=== PATIENT | male | born 1995 | race Caucasian/White ===

== ENCOUNTER 2020-10-03 14:16 | Emergency (ER) | payer SELFPAY ==
[~2020-10-03] VITALS: Ht 180.3 cm; Wt 75.3 kg
[2020-10-03 14:19] VITALS: BP 126/86
--- NOTE | 2020-10-03 14:26 | NUR ---
PT AMBULATED BACK TO ROOM. SECURITY FOLLOWING PT FOR SUSPICIOUS ACTIVITY. PT STATING HE THOUGHT HE HAD SEE HIS MOM IN ED TRIAGE AND THINKS HE HAS HAD MENENGITIS FOR TWO YEARS.
== END 2020-10-03 15:28 | disposition home or self-care (01) ==
LOC: ED 14:55
DX: F15.10 Other stimulant abuse, uncomplicated (principal); Z72.9 Problem related to lifestyle, unspecified
CPT/HCPCS: 99281

== ENCOUNTER 2020-11-03 10:35 | Emergency (ER) | payer SELFPAY ==
[~2020-11-03] VITALS: Ht 180.3 cm; Wt 77.3 kg
--- NOTE | 2020-11-03 11:00 | NUR ---
HEALTHCARE TECHNICIAN: CALLED PT NO ANSWER
--- NOTE | 2020-11-03 11:07 | NUR ---
MARY RN: CALLED PT NO ANSWER
--- NOTE | 2020-11-03 11:18 | NUR ---
MARY REY, CALLED NO ANSWER
[2020-11-03 11:44] VITALS: BP 124/84
== END 2020-11-03 11:59 | disposition home or self-care (01) ==
LOC: ED 11:32
DX: J30.2 Other seasonal allergic rhinitis (principal); H10.13 Acute atopic conjunctivitis, bilateral
CPT/HCPCS: 99283

== ENCOUNTER 2020-11-08 23:31 | Emergency (ER) | payer SELFPAY ==
[~2020-11-08] VITALS: Ht 180.3 cm; Wt 76.0 kg
--- NOTE | 2020-11-08 23:47 | NUR ---
PT NOT IN LOBBY WHEN CALLED FOR TRIAGE.
[2020-11-08 23:53] VITALS: BP 134/74
--- NOTE | 2020-11-09 02:24 | NUR ---
SPOT REMOVER: NIL X 1 WHEN CALLED FOR ROOM.
--- NOTE | 2020-11-09 02:35 | NUR ---
CITY SUPERVISOR: NIL X 2 WHEN CALLED FOR ROOM.
--- NOTE | 2020-11-09 02:45 | NUR ---
TECHNICAL SUPPORT CONSULTANT: NIL X 3 WHEN CALLED FOR ROOM.
== END 2020-11-09 02:46 | disposition left against medical advice (07) ==
LOC: ED 23:51
DX: J34.89 Other specified disorders of nose and nasal sinuses (principal); Z53.21 Procedure and treatment not carried out due to patient leaving prior to being seen by health care provider